=== PATIENT | male | born 1960 | race Two or more races ===

== ENCOUNTER 2017-01-25 19:45 | Emergency (ER) | payer OTHER ==
[~2017-01-25] VITALS: Ht 182.9 cm; Wt 59.9 kg
== END 2017-01-25 21:50 | disposition short-term general hospital (02) ==
LOC: ER 19:45 → RAD 19:46 → ER 19:46
DX: S42.402A Unspecified fracture of lower end of left humerus, initial encounter for closed fracture (principal); W23.0XXA Caught, crushed, jammed, or pinched between moving objects, initial encounter